=== PATIENT | female | born 1995 | race African-American/Black ===

== ENCOUNTER 2017-05-14 08:32 | Emergency (ER) | payer OTHER ==
[~2017-05-14] VITALS: Ht 175.3 cm; Wt 104.3 kg
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
== END 2017-05-14 12:20 | disposition home or self-care (01) ==
LOC: CED 08:32
DX: S00.83XA Contusion of other part of head, initial encounter (principal); S50.02XA Contusion of left elbow, initial encounter; S40.012A Contusion of left shoulder, initial encounter; Z88.0 Allergy status to penicillin; W01.198A Fall on same level from slipping, tripping and stumbling with subsequent striking against other object, initial encounter; Y92.090 Kitchen in other non-institutional residence as the place of occurrence of the external cause
CPT/HCPCS: 70450; 73060; 73080; 84703; 99284

== ENCOUNTER 2017-05-19 15:39 | Emergency (ER) | payer OTHER ==
[~2017-05-19] VITALS: Ht 175.3 cm; Wt 104.3 kg
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
== END 2017-05-19 17:20 | disposition home or self-care (01) ==
LOC: CFTX 15:39 → CED 15:39 → CFTX 16:53
DX: S13.4XXA Sprain of ligaments of cervical spine, initial encounter (principal); S43.401A Unspecified sprain of right shoulder joint, initial encounter; Z88.1 Allergy status to other antibiotic agents; X50.0XXA Overexertion from strenuous movement or load, initial encounter
CPT/HCPCS: 73030; 84703; 96372; 99283; J1885